=== PATIENT | female | born 1990 | race Caucasian/White ===

== ENCOUNTER 2022-05-21 12:47 | Emergency (ER) | payer OTHER, SELFPAY ==
[2022-05-21 12:48] VITALS: BP 105/48; PULSE 99; RESP 16; TEMP 37.4; O2SAT 97; BMI 20.6
[2022-05-21 13:37] LABS: Absolute Lymphocyte Count 0.46 X10^3/uL (0.83-4.51); Absolute Neutrophil Count 15.6 X10^3/uL (2.0-7.7); Basophil# 0.06 X10^3/uL; Basophil% 0.3 % (0-1); Hematocrit 43.3 % (37-47); Hemoglobin 14.4 g/dL (12.0-15.0); Lymphocyte # 0.46 X10^3/ul (0.83-4.51); Lymphocyte % 2.5 % (19-41); Mean Corp Hgb Conc 33.3 g/dL (32-36); Mean Corpuscular Hgb 31.9 pg (27.0-32.0); Mean Platelet Vol. 9.3 fl (6.2-12.0); Monocyte# 1.95 X10^3/uL; Monocyte% 10.7 % (0-10); NRBC Flagged by Analyzer 0 % (0-5); Neutrophil # 15.61 X10^3/uL (2.7-7.7); Neutrophil % 85.7 % (47-70); POSITIVE DIFFERENTIAL YES; Platelet Count 263 K/mm3 (150-450); RBC Distribution Width CV 11.5 % (11.6-14.6); RBC Distribution Width SD 40.6 fl (35.1-43.9); Red Blood Count 4.51 M/mm3 (4.2-5.4); White Blood Count 18.2 K/mm3 (4.4-11.0)
[2022-05-21 13:39] LABS: Differential Indicated SCAN CRITERIA MET
[2022-05-21 13:47] LABS: Anion Gap 11 (5-15); BUN 9 mg/dL (7-18); BUN/Creat Ratio 10.3 RATIO (10-20); Calcium,Total 8.9 mg/dL (8.5-10.1); Chloride 99 mmol/L (98-107); Creatinine, Serum 0.87 mg/dL (0.55-1.02); EST Glomerular Filtration Rate 80 mL/min (>60); Est Glom Filt Rate - Afr Amer 96 mL/min (>60); Glucose 117 mg/dL (74-106); Potassium 3.2 mmol/L (3.5-5.1); Sodium Level 135 mmol/L (136-145)
--- NOTE | 2022-05-21 13:58 | EDS_ITS ---
HPI History of Present Illness Chief Complaint: Cellulitis Detail of Chief Complaint: Cellulitis right knee region Informant: patient and family Onset/Context/Timing Onset: Yesterday Context: Sudden Onset Timing: Continuous Quality: Warm, painful and red swollen right knee Location: Right foot Hello/knee Current Severity: Unable to determine Worsened by: Movement and palpation Relieved by: Nothing Associated Symptoms Associated Symptoms: No fever or chills. And HPI narrative Narrative Narrative: Patient is a 32-year-old woman who scraped her knee 5 days ago. Yesterday she noted slight redness. Today the entire knee region is red. She denies fever or chills. Denies history medic fever, heart murmur, SBE or being immune suppressed. Patient denies drainage from the area. She does have pain in her groin area. She denies nausea, vomiting diarrhea. She denies myalgias or arthralgias. She denies allergies to antibiotics. Prior similar symptoms: No Recent Illness/Hospitalization: No PFSH PFSH Medical History no medical history no medical history Home Medications vits,calcium no.78-iron fumarate-folic acid 29 mg-1 mg tablet (Prenatabs FA) 1 tab PO DAILY 05/22/14 [History Last Taken 01/09/16 08:00 one] citalopram 20 mg tablet 20 mg PO DAILY #30 tabs 04/01/18 [Rx Last Taken Unknown] cephalexin 250 mg capsule 250 mg PO Q6 #40 CAPSULES 05/21/22 [Rx Last Taken Unknown] cephalexin 500 mg capsule 500 mg PO Q6 #28 CAPSULES 05/21/22 [Rx Last Taken Unknown] hydrocodone-acetaminophen 5-325mg 5mg-325mg 1 tab PO Q6H PRN PRN Pain 3 days #10 TABLETS 05/21/22 [Rx Last Taken Unknown] Allergy/AdvReac Type Severity Reaction Status Date / Time No Known Allergies Allergy Verified 05/21/22 12:49 Social History (Updated 05/21/22 @ 14:[address] Jose Luis Lamb MD) household members: none Smoking Status: Current every day smoker tobacco type: e-cigarettes substance use type: does not use ROS ROS ED Constitutional Constitutional ED: Denies chills, fever(s), subjective, sweats or weight loss Eyes Eyes: Denies blurry vision, change in vision or diplopia ENT ENT ED: Denies ear pain, rhinorrhea or sore throat Cardiovascular Cardiovascular: Denies chest pain, palpitations or racing heartbeat Respiratory/Chest Respiratory/Chest: Denies dyspnea or dyspnea on exertion Gastrointestinal Gastrointestinal: Denies diarrhea, nausea or vomiting Genitourinary Genitourinary ED: Denies dysuria, hematuria or urinary frequency Musculoskeletal Musculoskeletal: Reports other Details: Right knee ; Denies arthralgias, back pain, myalgias or neck pain Integumentary Reports rash Neurologic Neurologic: Denies headache(s), paresthesias or weakness Psychiatric Psychiatric: Denies anxiety or depression Hematologic/Lymphatic Hematologic/Lymphatic: Reports systems reviewed and no addt'l complaints, except as documented; Denies easy bleeding or easy bruising EXAM Physical Exam Const Vital Signs: 05/21/22 12:48 Temperature 99.4 F H Temperature Source Oral Pulse Rate 99 Respiratory Rate 16 Blood Pressure 105/48 L Blood Pressure Mean 67 Pulse Ox 97 Oxygen Delivery Method Room Air Positive well nourished and well developed; Negative for obese Constitutional Narrative: Patient appears to be in discomfort. She is hesitant to flex or extend the knee. General Appearance ED: well developed; Negative for cyanotic, diaphoretic or NAD Nutritional Appearance: Negative for obese HEENT Reports moist mucous membranes HEENT Narrative: Nares patent. Mucosa moist. Ears normal. Eyes PERRL and EOMs intact bilaterally General Eye ED: Negative for pale conjunctiva or scleral icterus Neck no lymphadenopathy, supple and no JVD Chest Wall inspection of chest normal and palpation of chest normal Resp normal respiratory effort and clear to auscultation bilaterally Cardio regular rate, regular rhythm, S1 normal heart sound, S2 normal heart sound and no murmurs GI normal to inspection, nondistended, normoactive bowel sounds, non-tender, non- distended and no masses; Negative for hepatosplenomegaly Extremity Extremity Narrative: There is extra-articular swelling of the right knee with erythema and warmth. There is no lymphangitis. There is no popliteal lymphadenopathy. There is right inguinal lymphadenopathy. Question of fluid in the infrapatellar prepatellar area. Neuro oriented x3, CN's II-XII intact bilaterally and no sensory deficits noted Sensorium / Orientation: alert Motor Exam: strength 5/5 throughout Psych Mood & Affect: anxious and tearful Skin no wounds and skin turgor normal Skin Narrative: Erythematous rash approximately 5 to 10 cm in diameter. General Skin Exam: elasticity normal MDM MDM MDM Narrative Medical decision making narrative: PregnancyPatient with cellulitis of the knee. Needle aspirate was performed. Small amount of clear fluid was obtained. This was sent for culture. Blood work was obtained to assess for renal function to determine if antibiotic does need to be adjusted. Also to rule out diabetes. White count was obtained to determine there is any bandemia which may necessitate hospitalization. Review of prior notes are for delivery and later. Lab Data Attestation: I reviewed the patient's lab results. Lab results narrative: White count is elevated 18.2 thousand with slight shift. There is no bandemia. Electrolyte panel is unremarkable. Labs: Laboratory Results - last 24 hr 05/21/22 05/21/22 13:25 13:25 WBC 18.2 H RBC 4.51 Hgb 14.4 Hct 43.3 MCV 96.0 MCH 31.9 MCHC 33.3 RDW Std Deviation 40.6 RDW Coeff of Arya 11.5 L Plt Count 263 MPV 9.3 Immature Gran % (Auto) 0.800 Neut % (Auto) 85.7 H Lymph % (Auto) 2.5 L [place] % (Auto) 10.7 H Eos % (Auto) 0.0 Baso % (Auto) 0.3 Absolute Neuts (auto) 15.6 H Absolute Lymphs (auto) 0.46 L Nucleated RBC % 0 Sodium 135 L Potassium 3.2 L Chloride 99 Carbon Dioxide 25.0 Anion Gap 11 BUN 9 Creatinine 0.87 Estim Creat Clear Calc 84.30 Est GFR (MDRD) Af Amer 96 Est GFR (MDRD) Non-Af 80 BUN/Creatinine Ratio 10.3 Glucose 117 H Calcium 8.9 Treatment and Re-Evaluation Narrative: Since patient does not have diabetes. Has no sirs criteria she is a candidate for outpatient therapy. Since this occurred abruptly most likely strep and not staph infection. We will treat with cephalexin 500 mg 4 times daily. We will have her seen by In 2 days for wound check. Procedures Other Procedures Procedure(s): Right knee was prepped in a sterile manner. 18-gauge needle was inserted outside of the area of erythema. There was scant amount of clear appearing fluid that was aspirated. This was sent to lab. There is no evidence of a pyogenic bursitis. Discharge Plan Triage Chief Complaint: Cellulitis ED Provider: Jose Luis Lamb Dx/Rx/DC Orders Clinical Impression: Cellulitis of knee, right Instructions: ED Cellulitis Prescriptions: New cephalexin [cephalexin] 250 mg capsule 250 mg PO Q6 Qty: 40 0RF hydrocodone-acetaminophen [hydrocodone-acetaminophen] 5-325 mg tablet 1 tab PO Q6H PRN PRN (Reason: Pain) 3 Days Qty: 10 0RF cephalexin [cephalexin] 500 mg capsule 500 mg PO Q6 Qty: 28 0RF No Action vit,[id number] [Prenatabs FA] 1 TABLET tablet 1 tab PO DAILY citalopram 20 mg tablet 20 mg PO DAILY Qty: 30 12RF Primary Care Provider: Care Physician,No Primary Referrals: Care Physician,No Primary [Primary Care Provider] - Disposition Disposition: Home, Self Care
[2022-05-21 14:00] LABS: Differential Comment SCANNED
--- NOTE | 2022-05-21 14:21 | CM.ED ---
Social Work Note Referral Source: Case Find Referral Reason: No PCP/ Insurance SW met with patient and patient's mother and introduced herself and role as [facility] [employer]ologist. SW requested permission to speak to patient with her mother present, patient agreed. SW inquired about current insurance or PCP. Patient reports no insurance at this time. SW provided patient with Medicaid Application and inquired about other needs. Patient was receptive towards application but reported no other needs. Patient's mother inquired about counseling resources, patient initially said she wasn't interested but said she would take the list. SW provided her with local counseling agency information as well as information regarding crisis. SW gave resources to patient's mother per patient request. No other needs voiced. Rebecca ORTIZ, JANNETTE
[2022-05-22 15:34] LABS: Pathologist Review Reviewed
== END 2022-05-21 14:59 | disposition home or self-care (01) ==
PROVIDERS: Emergency Provider Emergency Medicine; Visit Provider Emergency Medicine
DX: L03.115 Cellulitis of right lower limb (principal); F17.290 Nicotine dependence, other tobacco product, uncomplicated
CPT/HCPCS: 80048; 85025; 87070; 87075; 87205; 96365; 96366; 99283; J7050; J0295

== ENCOUNTER 2022-05-23 16:17 | Emergency (ER) | payer SELFPAY ==
[2022-05-23 16:18] VITALS: BP 112/67; PULSE 92; RESP 16; TEMP 36.9; O2SAT 98; BMI 20.6
--- NOTE | 2022-05-23 16:25 | EX.ED.DYSGE1 ---
HPI History of Present Illness Chief Complaint: Lower Extremity Injury Narrative Narrative: 32-year-old female here with knee pain. States she was here earlier this week and got antibiotics but symptoms have progressed over the last 24 hours to be double with they were. Denies any fever vomiting. Denies any immunocompromising states. Denies any history of cancer. Patient denies recent surgery, chemotherapy, immobilization, family or personal history of DVT or other clotting disorder. Patient further denies tobacco use, estrogen use, recent trauma. PFSH PFSH Medical History no medical history Home Medications vits,calcium no.78-iron fumarate-folic acid 29 mg-1 mg tablet (Prenatabs FA) 1 tab PO DAILY 05/22/14 [History Last Taken 01/09/16 08:00 one] citalopram 20 mg tablet 20 mg PO DAILY #30 tabs 04/01/18 [Rx Last Taken Unknown] cephalexin 500 mg capsule 500 mg PO Q6 #28 CAPSULES 05/21/22 [Rx Last Taken Unknown] hydrocodone-acetaminophen 5-325mg 5mg-325mg 1 tab PO Q6H PRN PRN Pain 3 days #10 TABLETS 05/21/22 [Rx Last Taken Unknown] fluconazole 150 mg tablet (Diflucan) 150 mg PO DAILY #1 TAB 05/23/22 [Rx Last Taken Unknown] ondansetron 4 mg disintegrating tablet 4 mg PO Q8H PRN nausea and vomiting #10 tabs 05/23/22 [Rx Last Taken Unknown] sulfamethoxazole 800 mg-trimethoprim 160 mg tablet (Bactrim DS) 1 tab PO BID 10 days #20 tabs 05/23/22 [Rx Last Taken Unknown] Allergy/AdvReac Type Severity Reaction Status Date / Time No Known Allergies Allergy Verified 05/23/22 16:17 Social History (Updated 05/21/22 @ 14:[address] Jose Luis Lamb MD) household members: none Smoking Status: Current every day smoker tobacco type: e-cigarettes substance use type: does not use ROS ROS ED ROS Narrative Constitutional: Denies fever HEENT: Denies sore throat Neck: Denies neck pain Cardiovascular: Denies chest pain, syncope Respiratory: Denies shortness of breath GI: Denies nausea vomiting or abdominal pain : Denies changes in urinary habits Musculoskeletal: Right knee pain Neurologic: Denies numbness weakness or loss of sensation Skin redness, concern for cellulitis on the right knee EXAM Physical Exam Narrative Exam Narrative: Nursing triage notes reviewed, Vital signs reviewed Constitutional: please see mdm HENT: MMM Eyes: Pupils equal round and reactive to light, Extraocular muscles intact Neck: No stridor, no JVD, full neck ROM Lungs: Clear to auscultation, No wheezing or rales. No increased work of breathing, no conversational dyspnea, no accessory muscle use, no nasal flaring. No respiratory distress noted Heart: Regular rate and rhythm, No murmurs, No rubs and No gallops, 2+ distal pulses (radial, femoral, posterior tibial) in all extremities Abdomen: Soft, there is no tenderness, rigidity, rebound or guarding, no obvious peritoneal signs, no palpable pulsatile abdominal masses, no auscultated abdominal bruit : No CVAT Extremities: Intact range of motion to the right knee, pain is not out of proportion to exam, compartments are soft. No calf tenderness or other stigmata VTE Neuro: Intact sensation L1-S1 dermatomal distributions. Intact 5/5 strength in hip flexion (T12-L3). Knee extension (L2-L4). Ankle dorsiflexion (L4-L5). Ankle plantar flexion (S1). Great toe extension (L5). 2+ patellar and Achilles DTRs. Skin: Confluent erythema noted to the mid tibia up to the mid thigh crossing over the knee joint, noted abrasion to the right lateral knee. No obvious joint effusion, no crepitus or bullae no obvious purulent discharge Const Vital Signs: 05/23/22 16:18 05/23/22 18:14 Temperature 98.4 F Temperature Source Temporal Pulse Rate 92 75 Respiratory Rate 16 16 Blood Pressure 112/67 108/65 Blood Pressure Mean 82 79 Pulse Ox 98 98 Oxygen Delivery Method Room Air Room Air [facility] MDM Narrative Medical decision making narrative: Chief Complaint: Knee pain External records reviewed: Arthrocentesis fluid culture showed no growth I considered: Septic arthritis, cellulitis, necrotizing fasciitis, DVT, osteomyelitis I consider ordering a duplex ultrasound of the right lower extremity however patient had no DVT risk factors and no stigmata of VTE to suggest this as a diagnosis. Patient clearly has cellulitis on exam. No crepitus or bullae to suggest necrotizing fasciitis. Considered septic arthritis, consider arthrocentesis however patient recent arthrocentesis 2 days prior to arrival with similar symptoms with a negative culture result. Unlikely to be associated with septic arthritis. We will give a dose of IV vancomycin here obtain labs to rule out signs of sepsis, elevation white blood cell count. Will obtain x-ray of the knee to rule out bony involvemen will determine disposition based on stair decision-making, vital signs, response to treatment labs and imaging studies. CBC with downtrending leukocytosis just above decreased systemic inflammation. Lactate negative. BMP without signs of endorgan hypoperfusion. Gave 1 IV round of vancomycin here in the ED. Had a shared decision-making discussion with patient and father. Offered hospitalization however patient father refused any like to go home and try oral antibiotics. Did prescribe Bactrim to cover MRSA. Keflex for strep coverage. Gave Diflucan for possible antibiotic associated yeast infection gave Zofran for nausea. Factors affecting care: Multiple recent ED visits Social determinants of health: Poor health literacy poor access to care Shared decision making: I will have a discussion with the patient and or visitors regarding risk/benefits of further testing or admission. They will be made aware of of the risk/benefits inherent in this decision they will be given the opportunity to voice understanding. Consults: none Lab Data Attestation: I reviewed the patient's lab results. Lab results narrative: CBC with improving leukocytosis, no significant anemia or thrombocytopenia BMP without evidence of significant electrolyte abnormalities, no anion gap to suggest endorgan hypoperfusion or acute kidney injury to suggest endorgan damage Lactate negative no evidence of endorgan hypoperfusion or sepsis Labs: Laboratory Results - last 24 hr 05/23/22 05/23/22 05/23/22 17:00 17:00 17:00 WBC 14.2 H RBC 4.50 Hgb 14.2 Hct 42.6 MCV 94.7 MCH 31.6 MCHC 33.3 RDW Std Deviation 39.2 RDW Coeff of Arya 11.2 L Plt Count 292 MPV 9.6 Sodium 135 L Potassium 3.3 L Chloride 101 Carbon Dioxide 26.0 Anion Gap 8 BUN 15 Creatinine 0.61 Estim Creat Clear Calc 120.23 Est GFR (MDRD) Af Amer 145 Est GFR (MDRD) Non-Af 120 BUN/Creatinine Ratio 24.5 H Glucose 99 Lactic Acid 1.3 Calcium 9.2 Radiography Diagnostic Testing: Clinical Impression(s) from Imaging Studies Knee X-Ray 05/23/22 17:23 IMPRESSION: No acute bony injury. Electronically Signed: Bib Piña MD at 17:44 EST , Discharge Plan Triage Chief Complaint: Lower Extremity Injury ED Provider: Manjit Hayden Dx/Rx/DC Orders Clinical Impression: Cellulitis of knee, right, Leukocytosis, Acute hypokalemia Prescriptions: New sulfamethoxazole-trimethoprim [Bactrim DS] 800-160 mg tablet 1 tab PO BID 10 Days Qty: 20 0RF ondansetron 4 mg tablet,disintegrating 4 mg PO Q8H PRN (Reason: nausea and vomiting) Qty: 10 0RF fluconazole [Diflucan] 150 mg tablet 150 mg PO DAILY Qty: 1 0RF No Action vit,[id number] [Prenatabs FA] 1 TABLET tablet 1 tab PO DAILY hydrocodone-acetaminophen [hydrocodone-acetaminophen] 5-325 mg tablet 1 tab PO Q6H PRN PRN (Reason: Pain) 3 Days Qty: 10 0RF cephalexin [cephalexin] 500 mg capsule 500 mg PO Q6 Qty: 28 0RF citalopram 20 mg tablet 20 mg PO DAILY Qty: 30 12RF Stand Alone Forms: ED Work / School Excuse Primary Care Provider: Care Physician,No Primary Referrals: Care Physician,No Primary [Primary Care Provider] - Activity Restrictions/Additional Instructions: Please take antibiotics as prescribed. Please complete entire course. Please return if you develop nausea and vomiting cannot tolerate antibiotics mouth. Please return if your symptoms rapidly progress.
[2022-05-23] MEDS: Ketorolac 15 MG/ML Vial IV (16:57)
[2022-05-23] MEDS: Acetaminophen 325 MG Tablet PO (16:57)
[2022-05-23] MEDS: Vancomycin IV 1,000 MG/200 ML BAG 200 MG IV (17:10)
[2022-05-23 17:11] LABS: Hematocrit 42.6 % (37-47); Hemoglobin 14.2 g/dL (12.0-15.0); Mean Corp Hgb Conc 33.3 g/dL (32-36); Mean Corpuscular Hgb 31.6 pg (27.0-32.0); Mean Corpuscular Volume 94.7 fL (81-99); Mean Platelet Vol. 9.6 fl (6.2-12.0); Platelet Count 292 K/mm3 (150-450); RBC Distribution Width CV 11.2 % (11.6-14.6); RBC Distribution Width SD 39.2 fl (35.1-43.9); White Blood Count 14.2 K/mm3 (4.4-11.0)
--- NOTE | 2022-05-23 17:23 | RAD_ITS ---
INDICATION: Right knee pain, swelling EXAMINATION/TECHNIQUE: X-RAY - RIGHT XR Knee 1 or 2 Views 2 VIEWS COMPARISON: None. FINDINGS: SOFT TISSUES: No soft tissue swelling or gas. No radiopaque foreign body. BONES/JOINTS: No acute fracture. Joint spaces anatomically maintained. RAD/Knee 1 or 2 Views IMPRESSION: No acute bony injury. Electronically Signed: Bib Piña MD at 17:44 EST ,
[2022-05-23 17:30] LABS: Anion Gap 8 (5-15); BUN 15 mg/dL (7-18); BUN/Creat Ratio 24.5 RATIO (10-20); Calcium,Total 9.2 mg/dL (8.5-10.1); Chloride 101 mmol/L (98-107); Creatinine, Serum 0.61 mg/dL (0.55-1.02); EST Glomerular Filtration Rate 120 mL/min (>60); Est Glom Filt Rate - Afr Amer 145 mL/min (>60); Estimated Creatinine Clearance 120.23 ml/min; Glucose 99 mg/dL (74-106); Potassium 3.3 mmol/L (3.5-5.1); Sodium Level 135 mmol/L (136-145)
[2022-05-23 17:36] LABS: Lactic Acid 1.3 mmol/L (0.4-1.9)
[2022-05-23 18:14] VITALS: BP 108/65; PULSE 75; RESP 16; O2SAT 98
== END 2022-05-23 18:37 | disposition home or self-care (01) ==
PROVIDERS: Emergency Provider Emergency Medicine; Visit Provider Emergency Medicine
DX: L03.115 Cellulitis of right lower limb (principal); D72.829 Elevated white blood cell count, unspecified; E87.6 Hypokalemia; F17.290 Nicotine dependence, other tobacco product, uncomplicated
CPT/HCPCS: 73560; 80048; 83605; 85027; 96365; 96375; 99282; J7050; A4216